=== PATIENT | male | born 1960 | race Two or more races ===

== ENCOUNTER 2024-10-08 19:19 | Emergency (ER) | payer BC ==
[~2024-10-08] VITALS: Ht 180.3 cm; Wt 68.0 kg
[2024-10-08] MEDS ORDERED: ONDANSETRON HCL 2 MG/ML VIAL IV ONE (21:30)
[2024-10-08] MEDS ORDERED: FAMOTIDINE/PF 20 MG/2 ML VIAL IV PUSH ONE (21:30)
[2024-10-08] MEDS ORDERED: 0.9 % SODIUM CHLORIDE 1,000 ML IV SCH (21:30)
[2024-10-08 23:16] LABS: HEMATOCRIT 46.1 % (39.0-48.0); HEMOGLOBIN 15.7 g/dL (13-16.00); MEAN CELL VOLUME 92.5 fL (80.0-100.00); MEAN CORPUSCULAR HEMOGLOBIN 31.6 pg (27.00-32.0); MEAN CORPUSCULAR HGB CONC 34.2 g/dl (32.0-36.0); PH,URINE 6.5 (5.0-8.0); PLATELET COUNT 232 K/uL (150-450); RED BLOOD COUNT 4.98 M/uL (4.00-6.00); RED CELL DISTRIBUTION WIDTH 17.7 % (11.5-14.5); URINE APPEARANCE Clear; URINE BILIRRUBIN Negative (NEGATIVE); URINE BLOOD Moderate; URINE COLOR Yellow; URINE GLUCOSE Negative (NEGATIVE); URINE KETONE Negative (NEGATIVE); URINE LEUKOCYTE Negative; URINE NITRATE Negative; URINE PROTEIN Trace (NEGATIVE)
[2024-10-08 23:21] LABS: URINE BACTERIA 74.5 uL (0.0-1933); URINE RBC 295.4 uL (0.0-20.8); URINE WBC 10.9 uL (0.0-23.2)
[2024-10-08 23:34] LABS: BILIRUBIN TOTAL 0.27 mg/dL (0.3-1.2); CALCIUM 8.2 mg/dL (8.5-10.1); CREATININE SERUM 1.44 mg/dL (0.70-1.30); GFR 49.55; GLOBULINA 3.4 G/DL (2.4-3.5); POTASSIUM 3.64 mEq/L (3.5-5.1); TOTAL PROTEIN 6.4 gm/dL (6.4-8.2)
== END 2024-10-09 02:31 | disposition home or self-care (01) ==
LOC: ER 19:19
PROVIDERS: Emergency Medicine
DX: K52.9 Noninfective gastroenteritis and colitis, unspecified (principal); R11.10 Vomiting, unspecified; Z20.822 Contact with and (suspected) exposure to COVID-19